=== PATIENT | female | born 1960 | race Two or more races ===

== ENCOUNTER 2019-08-07 07:25 | Day surgery (SDC) | payer BC ==
[~2019-08-07] VITALS: Ht 167.6 cm; Wt 68.9 kg
[2019-08-07] VITALS (8 sets, daily range): BP systolic 104–145; BP diastolic 68–78
[~2019-08-07 07:25] MED LIST: LR 1000ml 1,000 ML IVLG SCH
[2019-08-07] MEDS ORDERED: AMLODIPINE BESYL5 MG ORAL (08:06)
[2019-08-07] MEDS ORDERED: SIMVASTATIN20 MG ORAL (08:07)
[2019-08-07] MEDS ORDERED: Propofol 200mg/20ml IV ONE (09:00)
[2019-08-07] MEDS ORDERED: LR 1000ml ONE (09:00)
[2019-08-07] MEDS ORDERED: Lidocaine 1% MPF 10mg/ml 5ml ONE (09:00)
--- NOTE | 2019-08-07 09:00 | Pre-Procedure Note/Attestation ---
Pre-Procedure Note/Attestation Complete Prior to Procedure Planned Procedure: not applicable Procedure Narrative: esophagogastroduodenoscopy and colonoscopy Indications for Procedure Pre-Operative Diagnosis: screening colon, GERD Attestation I attest that I discussed the nature of the procedure; its benefits; risks and complications; and alternatives (and the risks and benefits of such alternatives ), prior to the procedure, with the patient (or the patient's legal sales representative public utilities). I attest that, if there was a reasonable possibility of needing a blood transfusion, the patient (or the patient's legal sales representative public utilities) was given the [facility] standardized written summary, pursuant to the [employer] [place] Blood Safety Act ([place] Health and Safety Code # 1645, as amended). I attest that I re-evaluated the patient just prior to the surgery and that there has been no change in the patient's H&P, except as documented below: Vijay Bowman MD Aug 07, 2019 09:00
--- NOTE | 2019-08-07 09:02 | Short Stay Surgery H&P ---
History of Present Illness History of Present Illness Chief Complaint screening colon, GERD HPI Radha Chappell is a 59 year old female who was admitted on for Abdominal Pain Patient History Allergies: Uncoded Allergies: plastics (Adverse Reaction, Intermediate, redness and itching, 08/07/19) PAST MEDICAL HISTORY: (1) HTN (hypertension) (2) Hypercholesteremia Medication History Scheduled Amlodipine Besylate* (Amlodipine Besylate*), 5 MG ORAL DAILY, (Reported) Simvastatin (Zocor), 20 MG ORAL BEDTIME, (Reported) Review of Systems Cardiovascular: Reports: no symptoms Respiratory: Reports: no symptoms Skeletal: Reports: no symptoms Gastrointestinal: Reports: gastro esophageal reflux disease Genitourinary: Reports: no symptoms Neurologic: Reports: no symptoms Endocrine: Reports: no symptoms Hematologic: Reports: no symptoms Physical Exam Vital Signs Last Vital Signs Date Time Temp Pulse Resp B/P (MAP) Pulse Ox O2 Delivery O2 Flow Rate FiO2 08/07/19 07:59 97.0 78 18 145/75 97 Room Air Skin: normal HENT: normal Heart: normal Lungs: normal Abdomen: normal Extremities: normal Plan Plan of Care esophagogastroduodenoscopy and colonoscopy Attestation Are the patient's medical conditions optimized for surgery? Attestation Response: yes Vijay Bowman MD Aug 07, 2019 09:02
[2019-08-07] MEDS ORDERED: LR 1000ml 1,000 ML IVLG SCH (09:19)
--- NOTE | 2019-08-07 09:27 | Anethesia Preoperative Eval ---
Anesthesia Pre-op PMH/ROS General Date of Evaluation: Aug 07, 2019 Time of Evaluation: 08:54 Anesthesiologist: julio ASA Score: ASA 3 Mallampati Score Class I : Soft palate, uvula, fauces, pillars visible Class II: Soft palate, uvula, fauces visible Class III: Soft palate, base of uvula visible Class IV: Only hard plate visible Mallampati Classification: Class II Surgeon: radha Diagnosis: abdominal pain Surgical Procedure: egd/colonoscopy Anesthesia History: none Social History: smoking - former smoker Family History: no anesthesia problems Allergies: Uncoded Allergies: plastics (Adverse Reaction, Intermediate, redness and itching, 08/07/19) Medications: see eMAR Patient NPO?: Yes Past Medical History Cardiovascular: Reports: HTN, other - hypercholesterolemia, rbbb Pulmonary: Reports: asthma Endocrine: Reports: hypothyroidism Anesthesia Pre-op Phys. Exam Physician Exam Last Vital Signs Date Time Temp Pulse Resp B/P (MAP) Pulse Ox O2 Delivery O2 Flow Rate FiO2 08/07/19 07:59 97.0 78 18 145/75 97 Room Air Constitutional: NAD Neurologic: CN 2-12 intact Cardiovascular: RRR Respiratory: CTA Gastrointestinal: S/NT/ND Airway Exam Mallampati Score: Class II MO: limited Neck: flexible TMD: 2fb ROM: limited Anesthesia Pre-op A/P Studies Pre-op Studies: EKG - nsr, rbbb Risk Assessment & Plan Assessment: asa3 Plan: mac Status Change Before Surgery: No Pre-Antibiotics Drug: Brisa Majano MD Aug 07, 2019 09:27
[2019-08-07] MEDS ORDERED: DiphenhydrAMINE 50mg/ml Inj IVP PRN (09:30)
[2019-08-07] MEDS ORDERED: Midazolam 2mg/2ml Inj IVP PRN (09:30)
[2019-08-07] MEDS ORDERED: Atropine Inj 1mg/10ml Syr IV PRN (09:30)
[2019-08-07] MEDS ORDERED: fentaNYL 100 mcg/2 mL IV PRN (09:30)
--- NOTE | 2019-08-07 09:37 | Endoscopy Procedure Note ---
Endoscopy Procedure Note General Indication for Procedure: screening colonoscopy, GERD Procedures Performed: EGD, colonoscopy Operative Findings/Diagnosis: gastritis, 3 colon polyps Specimen: yes Pt Tolerated Procedure Well: Yes Estimated Blood Loss: none Anesthesia Anesthesiologist: tashia delgadillo Anesthesia: MAC Inserted Devices Implant(s) used?: No Quality Quality of Bowel Preparation: Good Did scope reach the cecum?: Yes Was there any complications?: No GI Core Measures 50 yrs or older w/o bx or poly: No 10yrs. F/U recommended: Yes If not recommended, why?: Above average risk 18 years or older w/prev. colo: No Vijay Bowman MD Aug 07, 2019 09:37
--- NOTE | 2019-08-07 10:28 | Immediate Post-Op Evaluation ---
Immediate Post-Op Evalulation Immediate Post-Op Evalulation Procedure: egd/colonoscopy w/bx Date of Evaluation: Aug 07, 2019 Time of Evaluation: 09:58 IV Fluids: 700ml lr Blood Products: none Estimated Blood Loss: negligible Blood Pressure Systolic: 116 Blood Pressure Diastolic: 70 Pulse Rate: 72 Respiratory Rate: 18 O2 Sat by Pulse Oximetry: 99 Temperature (Fahrenheit): 97.6 Pain Score (1-10): 0 Nausea: No Vomiting: No Complications none Patient Status: awake, reacts, patent Hydration Status: adequate Drug: Brisa Majano MD Aug 07, 2019 10:28
--- NOTE | 2019-08-07 10:31 | 48 Hour Post Anesthesia Eval ---
Post Anesthesia Evaluation Procedure: egd/colonoscopy w/bx Date of Evaluation: Aug 07, 2019 Time of Evaluation: 10:00 Blood Pressure Systolic: 120 0: 76 Pulse Rate: 67 Respiratory Rate: 18 Temperature (Fahrenheit): 97.6 O2 Sat by Pulse Oximetry: 99 Airway: patent Nausea: No Vomiting: No Pain Intensity: 0 Hydration Status: adequate Cardiopulmonary Status: stable Mental Status/LOC: patient returned to baseline Post-Anesthesia Complications: none Follow-up care needed: N/A Brisa Cyr MD Aug 07, 2019 10:31
--- NOTE | 2019-08-07 15:30 | Procedure Note ---
DATE OF PROCEDURE: 08/07/2019 SURGEON: Vijay Bowman M.D. PROCEDURE: Upper endoscopy with biopsy and colonoscopy with biopsy. ANESTHESIA: Per Dr. Wright. INSTRUMENT: Olympus adult flexible upper endoscope and colonoscope. REASON FOR PROCEDURE: The procedure, risks, benefits, and possible consequences, including hemorrhage, aspiration, perforation and infection, and alternative treatments, were explained to the patient/legal guardian by Dr. Vijay Bowman and the patient/legal guardian understood and accepted these risks. INDICATION: Screening colonoscopy evaluation and chronic GERD. DESCRIPTION OF PROCEDURE: After informed consent was obtained and the patient was adequately sedated, Olympus upper endoscope was advanced from mouth into the second portion of the duodenum and retroflexion was performed in the stomach. The patient had diffuse gastritis. Random biopsy from antrum and body was obtained to rule out H. pylori infection. Otherwise, the rest of upper endoscopic examination was grossly within normal limits. No evidence of any esophageal varices. No esophagitis. No gastric ulceration. No duodenal ulceration. No obvious AVMs. At this time, the upper endoscope was retrieved and the patient was turned over for colonoscopy. First rectal exam was performed, which was positive for external and internal hemorrhoids. Then, the scope was advanced from the cecum, then subsequently terminal ileum. Quality of prep overall was good. The patient had 3 colonic polyps, one in the cecum, one in the ascending colon, and one in the rectum, there are all were small, less than 5 mm, removed with cold biopsy forceps technique. The rest of the examination was grossly within normal limits. Retroflexion of rectum showed evidence of medium-sized nonbleeding internal hemorrhoids. SUMMARY OF FINDINGS: 1. Gastritis, status post biopsy. 2. Internal and external hemorrhoids. 3. Three colonic polyps removed, see above for details. RECOMMENDATIONS: 1. Follow biopsy results and treat accordingly. 2. We will recommend repeat colonoscopy in 5 years. Vijay Bowman M.D. DR: VANITA JOB#: [id number] CC:
== END 2019-08-07 11:00 | disposition home or self-care (01) ==
LOC: GAS 07:25
DX: Z12.11 Encounter for screening for malignant neoplasm of colon (principal); K21.9 Gastro-esophageal reflux disease without esophagitis; K29.70 Gastritis, unspecified, without bleeding; K64.4 Residual hemorrhoidal skin tags; K64.8 Other hemorrhoids; K63.5 Polyp of colon; I10 Essential (primary) hypertension; E78.00 Pure hypercholesterolemia, unspecified; E03.9 Hypothyroidism, unspecified; Z87.891 Personal history of nicotine dependence
CPT/HCPCS: 43239; 45380; 93005; J2704; J7120; 94003; 94150